=== PATIENT | male | born 1990 | race Caucasian/White ===

== ENCOUNTER 2023-10-10 09:42 | Outpatient (AMB) | payer OTHER, SELFPAY ==
--- NOTE | 2023-10-10 09:40 | MHC.OFFVIS ---
Intake Intake Visit Reasons: Dysura Intake Note: New Patient presents today for initial visit for Dysuria Urology Medications: none Blood Thinner: None Patient stated he has a constant mild tingling and burning pain when he urinates, when he has sex, when he showers, he feel pain in the tip of the penis. He also stated that in July was severe the pain during sex, even though he improved Childcare Attendant Required: No Accompanied by: self Allergies No Known Allergies Allergy (Verified 10/10/23 11:25) Medication List - Last Reconciled 10/10/23 by JONI Gonzalez- fexofenadine (Libby Allergy) 120 mg PO DAILY HPI HPI Comments History of Present Illness Details Anatoliy is a very pleasant 33-year-old male patient. He presents to the office today as a new patient for ongoing dysuria. In discussion with the patient today he reports having seeked urgent care services for dysuria he had been experiencing approximately 2 months ago at which time he was prescribed doxycycline and has since finished treatment course. He reports he continued to with intermittent episodes of dysuria up until approximately 4 days ago where he has not been experiencing dysuria or pain at the tip of his penis as he was. He otherwise denies urinary urgency, urinary frequency, incontinence, nocturia, hematuria, foul smelling urine, changes to urinary stream, flank pain, fever, and or chills. He reports initially feeling a burning to the tip of his penis with urination and pain during intercourse. When asked he does report to be sexually active with 1 partner and has had previous STD workup with urgent care that was negative. In office urinalysis results reviewed with the patient today. He otherwise denies any penile discharge or testicular/scrotal discomfort. Discussed potentially urethritis given symptoms. At this time given symptoms have since subsided will continue with surveillance monitoring. He otherwise offers no other issues or concerns at this time. [facility] Surgical History (Updated 10/10/23 @ 10:14 by Marsha Brown CMA) History of hernia repair Social History (Updated 10/10/23 @ 10:00 by Marsha Brown CMA) Alcohol intake: current Comment: socially on weekends Patient Tobacco Use Status: Never used Tobacco Review of Systems Const All systems reviewed & are unremarkable except as noted in HPI and below Physical Exam Const General: cooperative, healthy appearing, comfortable, no acute distress, well developed, alert and awake Orientation/consciousness: patient oriented x3 Limitations: no limitations HEENT Head: Yes normal to inspection, Yes normocephalic and Yes atraumatic Ears: hearing grossly normal bilaterally Eyes General: appearance normal, both eyes and all related structures Neck Neck: Yes normal visual inspection and Yes trachea midline Chest Chest palpation & inspection: normal inspection of the chest Resp Effort & Inspection: normal respiratory effort and able to speak in complete sentences Cardio Rate: regular rate GI Inspection: Yes normal to inspection General: Yes no CVA tenderness Back/Spine/Pelvis Back: no CVA tenderness Skin General skin exam: no rashes or lesions noted Neuro General: patient oriented x3 Extrem General: Yes normal to inspection Psych Appearance: grossly normal and well kempt Mental Status: mental status grossly normal Speech and movement: Normal speech and movement present and Clear speech present Affect: normal affect Attitude: cooperative Thought process: Normal thought process present Thought content: Normal thought content present Insight: Good insight present (Psych) Judgement: Good judgement present (Psych) Results AMB Urinalysis, Automated UA Leukoctes 0 Samuel/uL Last Edit by Marsha Brown [facility] on 10/10/23 10:05 UA Nitrite Negative Last Edit by Marsha Brown [facility] on 10/10/23 10:05 UA Urobilinogen 0.2 mg/dL Last Edit by Marsha Brown [facility] on 10/10/23 10:05 UA Protein 0 mg/dL Last Edit by Marsha Brown [facility] on 10/10/23 10:05 UA pH 7.5 Last Edit by Marsha Brown [facility] on 10/10/23 10:05 UA Blood 0 Dash/uL Last Edit by Marsha Brown [facility] on 10/10/23 10:05 UA Specific [place] 1.015 Last Edit by Marsha Brown [facility] on 10/10/23 10:05 UA Ketone Negative Last Edit by Marsha Brown [facility] on 10/10/23 10:05 UA Bilirubin 0 mg/dL Last Edit by Marsha Brown [facility] on 10/10/23 10:05 UA Glucose 0 mg/dL Last Edit by Marsha Brown [facility] on 10/10/23 10:05 Results Reviewed Results Reviewed: Laboratory Last Values Urine pH (Auto) 7.5 10/10/23 10:04 Specific [place] (Auto) 1.015 10/10/23 10:04 Urine Protein (Auto) 0 mg/dL 10/10/23 10:04 Glucose (UA)(Auto) 0 mg/dL 10/10/23 10:04 Urine Ketones (Auto) Negative 10/10/23 10:04 Urine Blood (Auto) 0 Dash/uL 10/10/23 10:04 Urine Nitrite (Auto) Negative 10/10/23 10:04 Urine Bilirubin (Auto) 0 mg/dL 10/10/23 10:04 Urine Urobilinogen (Auto) 0.2 mg/dL 10/10/23 10:04 Leukocyte Esterase (Auto) 0 Samuel/uL 10/10/23 10:04 Assessment & Plan Assessment & Plan (1) Dysuria: Code(s): R30.0 - Dysuria (2) Urethritis: Code(s): N34.2 - Other urethritis Plan In office urinalysis results reviewed with the patient today; as noted above. Discussed at length potential causes of dysuria Discussed potential for symptoms being related to urethritis. Has since finished antibiotic therapy as prescribed by urgent care. He is happy with his current voiding parameters. He currently denies any bothersome urinary issues or concerns. Discussed, educated, and stressed the importance of continuing to drink plenty of water daily. Follow-up in 1 month; if not sooner with any issues, concerns, and or questions Orders: Orders AMB Urinalysis Automated Today R33.9 - Retention of urine, unspecified Patient Instructions: The patient had an opportunity to ask questions regarding the treatment plan. All questions were answered. Physical exam, labs, and imaging were discussed and reviewed in detail. As well as risks, benefits, and discussion of treatment choices. No major barriers to understanding were identified. The patient expressed understanding and agreement with the above treatment plan. The patient was made aware they should contact our office by phone for worsening of their current condition, the appearance of new symptoms, or with any questions or concerns. Compliance is encouraged with any medications and follow up testing that is ordered. It is a privilege to be allowed the opportunity to participate in? your urological care.? Again, if you have any questions or concerns If you have any questions or concerns please do not hesitate to contact me. The office is [phone]. This note is constructed using voice recognition software. While every effort has been made to ensure accuracy professor of vegetable science errors may have been included. Yours sincerely, JONI Goznalez-ISABEL Coding Level of Care Code New Pt Level 3 (83021) Diagnoses Dysuria R30.0 Urethritis N34.2
== END 2023-10-10 10:12 | disposition home or self-care (01) ==
PROVIDERS: Visit Provider Nurse Practitioner Family
DX: R30.0 Dysuria (principal); N34.2 Other urethritis; R33.9 Retention of urine, unspecified
CPT/HCPCS: 99203

== ENCOUNTER → 2023-10-10 09:42 | Outpatient (BNVA) | payer OTHER, SELFPAY | PROVIDERS: Visit Provider Nurse Practitioner Family | DX: R30.0 Dysuria (principal); N34.2 Other urethritis; R33.9 Retention of urine, unspecified | CPT/HCPCS: 81003 ==

== ENCOUNTER 2023-11-21 11:56 | Outpatient (AMB) | payer OTHER, SELFPAY ==
--- NOTE | 2023-11-21 12:12 | A.OFFVIS_ITS ---
Intake Intake Visit Reasons: 1 month follow up Intake Note: Patient presents today for follow up visit for Dysuria Urology Medications: none Blood Thinner: None Occupational Therapist Rehab Manager Required: No Accompanied by: self Allergies No Known Allergies Allergy (Verified 11/21/23 21:12) Medication List - Last Reconciled 11/21/23 by PARMJIT Gonzalez fexofenadine (Libby Allergy) 120 mg PO DAILY HPI HPI Comments History of Present Illness Details Anatoliy is a very pleasant 33-year-old male patient. He presents to the office today for follow-up. Of note, patient was seen approximately 6 weeks ago as a new patient for ongoing dysuria. However, during last office visit patient had reported symptoms had somewhat subsided prior to appointment. Patient with previous treatment for urethritis through urgent care at which time he was treated with doxycycline. In discussion with the patient today he reports intermittent infrequent episodes of dysuria. He reports feeling inflammation at the tip of his urethra. In assessment of the patient today very mild irritation noted to the tip of the penis. Otherwise no open areas, lesions, and or drainage noted. The penis is circumcised. He otherwise denies urinary urgency, urinary frequency, incontinence, nocturia, hematuria, foul smelling urine, changes to urinary stream, flank pain, fever, and or chills. He reports previously feeling dysuria worsened with sexual intercourse however this has subsided. When asked he does report to be sexually active with 1 partner and has had previous STD workup with urgent care that was negative. In office urinalysis results reviewed with the patient today. He otherwise denies any penile discharge or testicular/scrotal discomfort. Discussed potentially urethritis given symptoms. Discussed micro gin testing for further assessment evaluation. He otherwise offers no other issues or concerns at this time. [facility] Surgical History History of hernia repair Social History Alcohol intake: current Comment: socially on weekends Patient Tobacco Use Status: Never used Tobacco Review of Systems Const All systems reviewed & are unremarkable except as noted in HPI and below Physical Exam Const General: cooperative, healthy appearing, comfortable, no acute distress, well developed, alert and awake Orientation/consciousness: patient oriented x3 Limitations: no limitations HEENT Head: Yes normal to inspection, Yes normocephalic and Yes atraumatic Ears: hearing grossly normal bilaterally Eyes General: appearance normal, both eyes and all related structures Neck Neck: Yes normal visual inspection and Yes trachea midline Chest Chest palpation & inspection: normal inspection of the chest Resp Effort & Inspection: normal respiratory effort and able to speak in complete sentences Cardio Rate: regular rate GI Inspection: Yes normal to inspection General: Yes no CVA tenderness Penis: normal penis and circumcised Meatus: meatus normal (as per HPI) Scrotum: scrotum normal Testes: Testes normal Back/Spine/Pelvis Back: no CVA tenderness Skin General skin exam: no rashes or lesions noted Neuro General: patient oriented x3 Extrem General: Yes normal to inspection Psych Appearance: grossly normal and well kempt Mental Status: mental status grossly normal Speech and movement: Normal speech and movement present and Clear speech present Affect: normal affect Attitude: cooperative Thought process: Normal thought process present Thought content: Normal thought content present Insight: Good insight present (Psych) Judgement: Good judgement present (Psych) Results AMB Urinalysis, Automated UA Leukoctes 0 Samuel/uL Last Edit by [email or web address] on 11/21/23 13:03 UA Nitrite Negative Last Edit by [email or web address] on 11/21/23 13:03 UA Urobilinogen 0.2 mg/dL Last Edit by [email or web address] on 11/21/23 13:03 UA Protein 0 mg/dL Last Edit by [email or web address] on 11/21/23 13:03 UA pH 7.0 Last Edit by [email or web address] on 11/21/23 13:03 UA Blood 0 Dash/uL Last Edit by [email or web address] on 11/21/23 13:03 UA Specific [place] 1.005 Last Edit by [email or web address] on 11/21/23 13:03 UA Ketone Negative Last Edit by [email or web address] on 11/21/23 13:03 UA Bilirubin 0 mg/dL Last Edit by [email or web address] on 11/21/23 13:03 UA Glucose 0 mg/dL Last Edit by [email or web address] on 11/21/23 13:03 Results Reviewed Results Reviewed: Laboratory Last Values Urine pH (Auto) 7.0 11/21/23 12:18 Specific [place] (Auto) 1.005 11/21/23 12:18 Urine Protein (Auto) 0 mg/dL 11/21/23 12:18 Glucose (UA)(Auto) 0 mg/dL 11/21/23 12:18 Urine Ketones (Auto) Negative 11/21/23 12:18 Urine Blood (Auto) 0 Dash/uL 11/21/23 12:18 Urine Nitrite (Auto) Negative 11/21/23 12:18 Urine Bilirubin (Auto) 0 mg/dL 11/21/23 12:18 Urine Urobilinogen (Auto) 0.2 mg/dL 11/21/23 12:18 Leukocyte Esterase (Auto) 0 Samuel/uL 11/21/23 12:18 Assessment & Plan Assessment & Plan (1) Urethritis: Code(s): N34.2 - Other urethritis (2) Dysuria: Code(s): R30.0 - Dysuria Plan In office urinalysis results reviewed with the patient today; as noted above; will send urine for microgen testing Discussed at length potential causes of dysuria He is happy with his current voiding parameters. Discussed, educated, and stressed the importance of continuing to drink plenty of water daily. Discussed bladder triggers/irritants. Follow-up in 1 month; if not sooner with any issues, concerns, and or questions Orders: Orders AMB Urinalysis Automated Today Z13.9 - Encounter for screening, unspecified Patient Instructions: The patient had an opportunity to ask questions regarding the treatment plan. All questions were answered. Physical exam, labs, and imaging were discussed and reviewed in detail. As well as risks, benefits, and discussion of treatment choices. No major barriers to understanding were identified. The patient expressed understanding and agreement with the above treatment plan. The patient was made aware they should contact our office by phone for worsening of their current condition, the appearance of new symptoms, or with any questions or concerns. Compliance is encouraged with any medications and follow up testing that is ordered. It is a privilege to be allowed the opportunity to participate in? your urological care.? Again, if you have any questions or concerns If you have any questions or concerns please do not hesitate to contact me. The office is [phone]. This note is constructed using voice recognition software. While every effort has been made to ensure accuracy projector booth operator errors may have been included. Yours sincerely, PARMJIT Gonzalez Coding Level of Care Code Est Pt Level 3 (81813) Diagnoses Urethritis N34.2 Dysuria R30.0 Time Spent (min) 20
== END 2023-11-21 12:39 | disposition home or self-care (01) ==
PROVIDERS: Visit Provider Nurse Practitioner Family
DX: Z13.9 Encounter for screening, unspecified (principal)
CPT/HCPCS: 99213

== ENCOUNTER → 2023-11-21 11:56 | Outpatient (BNVA) | payer OTHER, SELFPAY | PROVIDERS: Visit Provider Nurse Practitioner Family | DX: R30.0 Dysuria (principal); N34.2 Other urethritis | CPT/HCPCS: 81003 ==

== ENCOUNTER 2024-02-17 11:48 | Outpatient (AMB) | payer OTHER, SELFPAY ==
--- NOTE | 2024-02-17 11:54 | A.OFFVIS_ITS ---
Intake Visit Reasons: follow up/UTI Intake Note: Patient presents today for follow up visit for Dysuria Urology Medications: none Blood Thinner: None PVR: 26ml's Mash Grinder Required: No Accompanied by: self Allergies No Known Allergies Allergy (Verified 02/17/24 22:54) Medication List - Last Reconciled 02/17/24 by PARMJIT Gonzalez fexofenadine (Libby Allergy) 120 mg PO DAILY HPI Comments Details: Anatoliy is a very pleasant 33-year-old male patient. He presents to the office today for follow-up. Of note, patient was seen approximately 3 months ago at which time he was treated for positive microgen results. 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 He has since completed antibiotic therapy. He reports completing antibiotic therapy as prescribed. He does continue to report ongoing intermittent episodes of perineal pain with episodes of dysuria. He reports feeling symptoms are manageable. He discusses feeling at times he goes days where he does not experience any issues whereas there is other days where he feels symptoms are somewhat present. Discussed at length potential causes of urinary tract infections as well as prostatitis. Discussed signs and symptoms of urinary tract infections versus prostatitis. In office YOLY performed boggy prostate noted. In office prostate massage was performed and urine specimen was sent for microgen. He otherwise denies urinary urgency, urinary frequency, incontinence, nocturia, hematuria, foul smelling urine, changes to urinary stream, flank pain, fever, and or chills. When asked he does report to be sexually active with 1 partner and has had previous STD workup with urgent care that was negative. In office urinalysis results reviewed with the patient today. He otherwise denies any penile discharge or testicular/scrotal discomfort. He otherwise offers no other issues or concerns at this time. [facility] Surgical History History of hernia repair Social History Alcohol intake: current Comment: socially on weekends Patient Tobacco Use Status: Never used Tobacco Review of Systems Const All systems reviewed & are unremarkable except as noted in HPI and below Physical Exam Const General: cooperative, healthy appearing, comfortable, no acute distress, well developed, alert and awake Orientation/consciousness: patient oriented x3 Limitations: no limitations HEENT Head: Yes normal to inspection, Yes normocephalic and Yes atraumatic Ears: hearing grossly normal bilaterally Eyes General: appearance normal, both eyes and all related structures Neck Neck: Yes normal visual inspection and Yes trachea midline Chest Chest palpation & inspection: normal inspection of the chest Resp Effort & Inspection: normal respiratory effort and able to speak in complete sentences Cardio Rate: regular rate GI Inspection: Yes normal to inspection General: Yes no CVA tenderness Penis: normal penis and circumcised Meatus: meatus normal (as per HPI) Scrotum: scrotum normal Testes: Testes normal Back/Spine/Pelvis Back: no CVA tenderness Skin General skin exam: no rashes or lesions noted Neuro General: patient oriented x3 Extrem General: Yes normal to inspection Psych Appearance: grossly normal and well kempt Mental Status: mental status grossly normal Speech and movement: Normal speech and movement present and Clear speech present Affect: normal affect Attitude: cooperative Thought process: Normal thought process present Thought content: Normal thought content present Insight: Good insight present (Psych) Judgement: Good judgement present (Psych) Office Procedures Post Void Residual Post Residual Void Post Void Residual (PVR): 26 [id number] Void Residual by ultrasound Results AMB Urinalysis, Automated UA Leukoctes 0 Samuel/uL Last Edit by [employer] on 02/17/24 12:11 UA Nitrite Negative Last Edit by [employer] on 02/17/24 12:11 UA Urobilinogen 0.2 mg/dL Last Edit by [employer] on 02/17/24 12:11 UA Protein 0 mg/dL Last Edit by [employer] on 02/17/24 12:11 UA pH 6.0 Last Edit by [employer] on 02/17/24 12:11 UA Blood 0 Dash/uL Last Edit by [employer] on 02/17/24 12:11 UA Specific [place] 1.015 Last Edit by [employer] on 02/17/24 12:11 UA Ketone Negative Last Edit by [employer] on 02/17/24 12:11 UA Bilirubin 0 mg/dL Last Edit by [employer] on 02/17/24 12:11 UA Glucose 0 mg/dL Last Edit by [employer] on 02/17/24 12:11 Results Reviewed Results Reviewed: Laboratory Last Values Urine pH (Auto) 6.0 02/17/24 12:10 Specific [place] (Auto) 1.015 02/17/24 12:10 Urine Protein (Auto) 0 mg/dL 02/17/24 12:10 Glucose (UA)(Auto) 0 mg/dL 02/17/24 12:10 Urine Ketones (Auto) Negative 02/17/24 12:10 Urine Blood (Auto) 0 Dash/uL 02/17/24 12:10 Urine Nitrite (Auto) Negative 02/17/24 12:10 Urine Bilirubin (Auto) 0 mg/dL 02/17/24 12:10 Urine Urobilinogen (Auto) 0.2 mg/dL 02/17/24 12:10 Leukocyte Esterase (Auto) 0 Samuel/uL 02/17/24 12:10 Assessment & Plan Assessment & Plan (1) Dysuria: Code(s): R30.0 - Dysuria Category: Medical (2) Perineal pain in male: Code(s): R10.2 - Pelvic and perineal pain Category: Medical (3) Prostatitis: Code(s): N41.9 - Inflammatory disease of prostate, unspecified Category: Medical Plan In office urinalysis results reviewed with the patient today; as noted above. PVR 26 mLs. Prostate massage performed; urine was sent for microgen; will await results for potential treatment options. Discussed at length potential causes of symptoms patient is experiencing. He is happy with his current voiding parameters. Discussed,educated, and stressed the importance of continuing to drink plenty of water daily. Discussed bladder triggers/irritants. Follow-up in 1-2 month; if not sooner with any issues, concerns, and or questions Orders: Orders AMB Urinalysis Automated Today Z13.9 - Encounter for screening, unspecified AMB Post Void Residual by ultrasound Today R30.0 - Dysuria Patient Instructions: The patient had an opportunity to ask questions regarding the treatment plan. All questions were answered. Physical exam, labs, and imaging were discussed and reviewed in detail. As well as risks, benefits, and discussion of treatment choices. No major barriers to understanding were identified. The patient expressed understanding and agreement with the above treatment plan. The patient was made aware they should contact our office by phone for worsening of their current condition, the appearance of new symptoms, or with any questions or concerns. Compliance is encouraged with any medications and follow up testing that is ordered. It is a privilege to be allowed the opportunity to participate in? your urological care.? Again, if you have any questions or concerns If you have any questions or concerns please do not hesitate to contact me. The office is [phone]. This note is constructed using voice recognition software. While every effort has been made to ensure accuracy roof cement and paint maker errors may have been included. Yours sincerely, PARMJIT Gonzalez Coding Level of Care Code Est Pt Level 4 (43774) Diagnoses Dysuria R30.0 Perineal pain in male R10.2 Prostatitis N41.9 CPT Codes Post Residual Void - PVR CPT Code: 24694-[id number] Void Residual by ultrasound ([id number]) Time Spent (min) 25
== END 2024-02-17 12:29 | disposition home or self-care (01) ==
PROVIDERS: Visit Provider Nurse Practitioner Family
DX: R30.0 Dysuria (principal); R10.2 Pelvic and perineal pain; N41.9 Inflammatory disease of prostate, unspecified
CPT/HCPCS: 99214

== ENCOUNTER → 2024-02-17 11:48 | Outpatient (BNVA) | payer OTHER, SELFPAY | PROVIDERS: Visit Provider Nurse Practitioner Family | DX: R30.0 Dysuria (principal); R10.2 Pelvic and perineal pain; N41.9 Inflammatory disease of prostate, unspecified | CPT/HCPCS: 51798; 81003 ==

== ENCOUNTER 2024-05-20 06:58 | Outpatient (REF) | payer OTHER, SELFPAY ==
--- NOTE | ~2024-05-20 | US_ITS ---
EXAMINATION: US SCROTUM CLINICAL INFORMATION: 34-year-old male with testicular pain. COMPARISON: None available. TECHNIQUE: A sonogram of the scrotum was performed assessing bueno-scale appearance and color Doppler flow. Spectral Doppler analysis of the arterial and venous flow were performed in the testes bilaterally. FINDINGS: RIGHT: Right testicle measures 4.5 x 2.2 x 3.3 cm, volume 17 point mL. No focal testicular parenchymal lesions are visualized. Spectral Doppler analysis of the arterial and venous flow is normal in the right testis. Right epididymal head is normal in size. No right hydrocele or varicocele is seen. Right epididymal Doppler flow is normal. LEFT: Left testicle measures 4.8 x 2.3 x 3.3 cm, volume 19.1 mL. No focal testicular parenchymal lesions are visualized. Spectral Doppler analysis of the arterial and venous flow is normal in the left testis. There is single punctate focus of calcification system with microlithiasis Left epididymal head is normal in size. No left hydrocele or varicocele is seen. Left epididymal Doppler flow is normal. 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 Electronically signed by: Mychal Albarado MD 05/20/2024 04:38 PM EDT
== END 2024-05-20 06:59 | disposition home or self-care (01) ==
LOC: HO.UMASIMG 06:58
PROVIDERS: Visit Provider Physician Assistant
DX: N50.819 Testicular pain, unspecified (principal)
CPT/HCPCS: 76870